=== PATIENT | male | born 1990 | race African-American/Black ===

== ENCOUNTER 2019-05-16 09:33 | Emergency (ER) | payer OTHER ==
[~2019-05-16] VITALS: Ht 190.5 cm; Wt 104.3 kg
[2019-05-16 10:25] LABS: URINE BILIRUBIN NEGATIVE (Negative); URINE BLOOD NEGATIVE (Negative); URINE CLARITY CLEAR; URINE COLOR YELLOW; URINE GLUCOSE-RANDOM* 3+ (Negative); URINE KETONES NEGATIVE (Negative); URINE LEUKOCYTES-REFLEX NEGATIVE (Negative); URINE NITRITE-REFLEX NEGATIVE (Negative); URINE PROTEIN (DIPSTICK) NEGATIVE (Negative); URINE SPECIFIC GRAVITY <= 1.005 (1.005-1.035); URINE UROBILINOGEN 0.2 E.U./dl (0.2-1.0)
[2019-05-16] MEDS ORDERED: HUMALOG100 UNIT/1 SUBQ (10:35)
[2019-05-16] MEDS ORDERED: LANTUS SUBQ (10:35)
[2019-05-16 11:24] VITALS: BP 149/86
== END 2019-05-16 11:24 | disposition home or self-care (01) ==
LOC: ER 09:33
PROVIDERS: Emergency Medicine
DX: R36.9 Urethral discharge, unspecified (principal); E10.9 Type 1 diabetes mellitus without complications; F17.200 Nicotine dependence, unspecified, uncomplicated